=== PATIENT | female | born 1970 | race Caucasian/White ===

== ENCOUNTER 2017-02-18 04:59 | Emergency (ER) | payer MEDICARE, BC ==
[~2017-02-18] VITALS: Ht 162.6 cm; Wt 57.6 kg
[~2017-02-18 04:59] MED LIST: CLON-412 PO; LITH450T PO
[2017-02-18 05:05] VITALS: Ht 162.6 cm; Wt 57.6 kg
[2017-02-18 06:44] LABS: BASOPHIL # 0.1 10^3/ul (0.0-0.1); BASOPHILS % 0.5 % (0.0-2.0); EOSINOPHILS % 0.3 % (0.0-7.0); HEMATOCRIT 39.5 % (37.0-47.0); HEMOGLOBIN 13.4 g/dl (12.0-16.0); LYMPHOCYTES # 0.9 10^3/ul (0.8-2.9); LYMPHOCYTES % 9.3 % (15.0-51.0); MEAN CORPUSCULAR HEMOGLOBIN 30.9 pg (29.0-33.0); MEAN CORPUSCULAR HGB CONC 33.9 g/dl (32.0-37.0); MEAN PLATELET VOLUME 10.9 fl (7.4-10.4); MONOCYTE # 0.8 10^3/ul (0.3-0.9); MONOCYTES % 8.5 % (0.0-11.0); NEUTROPHIL # 7.8 10^3/ul (1.6-7.5); PLATELET COUNT 300 10^3/UL (140-415); RED BLOOD COUNT 4.34 10^6/ul (4.20-5.40); RED CELL DISTRIBUTION WIDTH 12.6 % (11.5-14.5); WHITE BLOOD COUNT 9.7 10^3/ul (4.8-10.8)
--- NOTE | 2017-02-18 07:15 | PSY ---
Date/Time of Note Date/Time of Note DATE: 02/18/17 TIME: 06:57 Psychiatric Subjective Eval Consent Pt consented to telemedicine: Yes Subjective Evaluation Patient location: emergency Chief Complaint: feels her heart racing = woke up from sleep- denies CP Reason for consult: heart palpitation and swetiness History of present illness patient is a 46 yo female with PPH Of bipolar do and anxiety do who came to the ER due to feeling suicidal and anxious, she states that she came because she was feeling sweaty with heart palpitation, but then added that she has been feeling suicidal and she wants to OD on pills, she has been feeling depressed, hopeless and helpless for weeks, has bee hearing voices telling her to kill herself , feeling paranoid , she was admitted to psych unit last week end , she denies any drug but has been drinking alcohol. she has been having panic attacks. Past psychiatric history past suicidal attempt yes Allergies: Coded Allergies: Sulfa (Sulfonamide Antibiotics) (Verified Allergy, Unknown, 02/18/17) Substance Abuse Substance use: No known substance abuse Social History Marital status: single Level of education: hs DPA/Conservatorship: No Occupation/[facility]: no Psychiatric Objective Eval Review of Systems: Review of Systems: Not Applicable Physical Examination: Physical Examination: Applicable Sleep: Insomnia Appetite: Decreased Energy: Decreased Interest: Decreased Mental Status Examination: Appearance: Groomed Eye Contact: Good Psychomotor Activity: Slow Behavior: Cooperative Speech: Clear AFFECT: Flat Mood: Depressed Though Process: Linear Thought Content: Hallucinations Suicidal: Yes Homicidal: No On 72 hour hold: No Orientation: x3 Cognition: Alert Insight: Impared Judgement: Impared Attention Span: Distractible Laboratory Results Laboratory Tests Test 02/18/17 06:00 White Blood Count 9.710^3/ul Red Blood Count 4.3410^6/ul Hemoglobin 13.4g/dl Hematocrit 39.5% Mean Corpuscular Volume 91.0fl Mean Corpuscular Hemoglobin 30.9pg Mean Corpuscular Hemoglobin Concent 33.9g/dl Red Cell Distribution Width 12.6% Platelet Count 77079^3/UL Mean Platelet Volume 10.9fl Neutrophils % 81.0% Lymphocytes % 9.3% Monocytes % 8.5% Eosinophils % 0.3% Basophils % 0.5% Nucleated Red Blood Cells % 0.0/100WBC Neutrophils # 7.810^3/ul Lymphocytes # 0.910^3/ul Monocytes # 0.810^3/ul Eosinophils # 0.010^3/ul Basophils # 0.110^3/ul Nucleated Red Blood Cells # 0.010^3/ul Assessment and Plan Assessment/Diagnosis [place] I: bipolar do type 1 current episode depressed severe with psychotic features [place] II: deferred [place] III: as per record [place] IV: poor social support [place] V: gaf 25 Recommendation/Plan Medication Management risperdal 1 mg po bid for psychosis ativan 1 mg po bid for anxiety lexapro 10 mg po qd for depression and anxiety Follow-up/Disposition Please admit patient on unvoluntary status due to Danger to self, In my opinion, patient currently MEETS criterion for inpatient care and CANNOT be safely treated ~at a lower level of care today as evidenced by the following risk factors: ~Current and Recent Suicidal Ideation Previous suicide attempt and~ severe self-destructive behavior Intense feelings of hopelessness and lack of future orientation. Significant recent DETERIORATION in function, behavior and thought processes ~Command hallucinations with violent content Substance ABUSE in conjunction with another psychiatric disorder Non-Compliance with Outpatient Treatment Patient has failed outpatient and requires further inpatient assessment Medication changes require observation unavailable at a lower level of care. 5150 Recommendation: SUZANNA Bach MD Feb 18, 2017 07:08
[2017-02-18 07:21] LABS: ALANINE AMINOTRANSFERASE 23 IU/L (13-69); ALBUMIN 4.4 g/dl (3.3-4.9); ALBUMIN/GLOBULIN RATIO 1.51; ALKALINE PHOSPHATASE 80 IU/L (42-121); ANION GAP 18 (8-16); ASPARTATE AMINO TRANSFERASE 17 IU/L (15-46); BILIRUBIN,INDIRECT 0.5 mg/dl (0-1.1); BILIRUBIN,TOTAL 0.5 mg/dl (0.2-1.3); BLOOD UREA NITROGEN 8 mg/dl (7-20); CALCIUM 9.3 mg/dl (8.4-10.2); CARBON DIOXIDE 27 mmol/L (21-31); CHLORIDE 102 mmol/L (97-110); GLUCOSE 101 mg/dl (70-220); POTASSIUM 3.5 mmol/L (3.5-5.1); SODIUM 143 mmol/L (135-144); TOTAL PROTEIN 7.3 g/dl (6.1-8.1)
[2017-02-18 07:25] LABS: ACETAMINOPHEN < 10.0 ug/ml (10.0-30.0); ETHANOL < 10.0 mg/dl; SALICYLATE < 1.0 mg/dl (5.0-30.0)
--- NOTE | 2017-02-18 07:33 | RADRPT ---
PROCEDURE: XR Chest. TECHNIQUE: Single frontal radiograph. CLINICAL INDICATION: Shortness of breath. COMPARISON: 02/25/2013. FINDINGS: No focal consolidation, pneumothorax, or pleural effusions. Heart size is within normal limits. IMPRESSION: No acute cardiopulmonary process. RPTAT: EE .Charli Waggoner MD, Date Time Electronically viewed and signed by .Charli Waggoner MD, MD on 02/18/2017 07:39 .C/
--- NOTE | 2017-02-18 08:58 | ERD ---
ER Documentation Chief Complaint Chief Complaint feels her heart racing = woke up from sleep- denies CP HPI Patient is a 46-year-old female with bipolar disorder and posttraumatic stress who presents with palpitations. She said that she has had palpitations for the past few days. She had shortness of breath and some sharp chest pain as well. She does have a history of bipolar disorder and posttraumatic stress and was just discharged from a psychiatric hospital 2 days ago. Upon questioning she does admit to suicidal ideation and has a plan to overdose on pills. She does not have any homicidal ideation at this time. She was brought into the emergency department by a friend who was concerned. ROS All systems reviewed and are negative except as per history of present illness. Medications Home Meds Reported Medications Clonazepam* (Klonopin*) 1 Mg Tablet, 1 MG PO BID 02/23/13 Clarkson Carbonate* (Clarkson Carbonate* CR) 450 Mg Tablet.sa, 450 MG PO DAILY 02/23/13 Allergies Allergies: Coded Allergies: Sulfa (Sulfonamide Antibiotics) (Verified Allergy, Unknown, 02/18/17) PMhx/Soc History of Surgery: Yes (dental sx only per pt, molars were extracted) Anesthesia Reaction: No Hx Neurological Disorder: No Hx Respiratory Disorders: No Hx Cardiac Disorders: No Hx Psychiatric Problems: Yes (bipolar and PTSD) Hx Miscellaneous Medical Probl: Yes (depression only per pt) Hx Alcohol Use: Yes (somethimes) Hx Substance Use: No Hx Tobacco Use: No Smoking Status: Never smoker FmHx Family History: No diabetes Physical Exam Vitals Vital Signs Date Time Temp Pulse Resp B/P Pulse Ox O2 Delivery O2 Flow Rate FiO2 02/18/17 06:13 98.1 84 18 143/89 100 Room Air 02/18/17 05:05 98.1 103 20 162/81 97 Physical Exam Const: No acute distress Head: Atraumatic Eyes: Normal Conjunctiva ENT: Normal External Ears, Nose and Mouth. Neck: Full range of motion..~ No meningismus. Resp: Clear to auscultation bilaterally Cardio: Regular rate and rhythm, no murmurs Abd: Soft, non tender, non distended. Normal bowel sounds Skin: No petechiae or rashes Back: No midline or flank tenderness Ext: No cyanosis, or edema Neur: Awake and alert Psych: Positive for suicidal ideation with plan to overdose on pills, negative for homicidal ideation Result Diagram: 02/18/17 0600 02/18/17 0600 Results 24 hrs Laboratory Tests Test 02/18/17 06:00 White Blood Count 9.710^3/ul Red Blood Count 4.3410^6/ul Hemoglobin 13.4g/dl Hematocrit 39.5% Mean Corpuscular Volume 91.0fl Mean Corpuscular Hemoglobin 30.9pg Mean Corpuscular Hemoglobin Concent 33.9g/dl Red Cell Distribution Width 12.6% Platelet Count 76601^3/UL Mean Platelet Volume 10.9fl Neutrophils % 81.0% Lymphocytes % 9.3% Monocytes % 8.5% Eosinophils % 0.3% Basophils % 0.5% Nucleated Red Blood Cells % 0.0/100WBC Neutrophils # 7.810^3/ul Lymphocytes # 0.910^3/ul Monocytes # 0.810^3/ul Eosinophils # 0.010^3/ul Basophils # 0.110^3/ul Nucleated Red Blood Cells # 0.010^3/ul Sodium Level 143mmol/L Potassium Level 3.5mmol/L Chloride Level 102mmol/L Carbon Dioxide Level 27mmol/L Anion Gap 18 Blood Urea Nitrogen 8mg/dl Creatinine 0.60mg/dl Glucose Level 101mg/dl Calcium Level 9.3mg/dl Total Bilirubin 0.5mg/dl Direct Bilirubin 0.00mg/dl Indirect Bilirubin 0.5mg/dl Aspartate Amino Transf (AST/SGOT) 17IU/L Alanine Aminotransferase (ALT/SGPT) 23IU/L Alkaline Phosphatase 80IU/L Total Protein 7.3g/dl Albumin 4.4g/dl Globulin 2.90g/dl Albumin/Globulin Ratio 1.51 Salicylates Level < 1.0mg/dl Acetaminophen Level < 10.0ug/ml Ethyl Alcohol Level < 10.0mg/dl Current Medications Medications (Trade) Dose Ordered Sig/Martin Route PRN Reason Start Time Stop Time Status Last Admin Dose Admin Escitalopram Oxalate (Lexapro) 10 mg DAILY PO 02/18/17 09:00 Risperidone (Risperdal) 1 mg BID PO 02/18/17 09:00 Lorazepam (Ativan) 1 mg BID PO 02/18/17 09:00 Procedures/MDM EKG read by me: Rate/Rhythm: Regular rate and rhythm at a rate of 98 Intervals: Normal Impression: No evidence of ischemia or arrhythmia Chest x-ray negative per radiology. Patient is a 46-year-old female with posttraumatic stress and bipolar disorder who presents with suicidal ideation with plan to overdose. She had a medical screening exam with laboratory studies which was negative and the patient is now medically clear for psychiatric admission. The patient was seen by psychiatry who recommended a 5150 hold as well as medications which I have ordered. The patient will need transfer to a psychiatric facility for higher level of care as we do not currently have a psychiatric facility here at the hospital. Departure Diagnosis: Primary Impression: Suicidal ideation Additional Impression: Palpitations Condition: SAMM Fraire MD Feb 18, 2017 08:58
[2017-02-18] MEDS ORDERED: RISPERIDONE 1 MG TAB PO SCH (09:00)
[2017-02-18] MEDS ORDERED: ESCITALOPRAM 10 MG TAB PO SCH (09:00)
[2017-02-18] MEDS ORDERED: LORAZEPAM 1 MG TAB PO SCH (09:00)
[2017-02-18] MEDS ORDERED: ESCI5TAB PO (09:22)
[2017-02-18] MEDS ORDERED: LORA-441 PO (09:23)
[2017-02-18 11:45] LABS: ADD UMIC NO; UR ASCORBIC ACID 40 mg/dL (NEGATIVE); UR BACTERIA FEW /HPF (NONE SEEN); UR BILIRUBIN (Dip) NEGATIVE (NEGATIVE); UR BLOOD (Dip) NEGATIVE (NEGATIVE); UR CLARITY SLIGHTLY CLOUDY (CLEAR); UR COLOR YELLOW (YELLOW); UR GLUCOSE (Dip) NEGATIVE (NEGATIVE); UR KETONES (Dip) 2+ mg/dL (NEGATIVE); UR LEUKOCYTE ESTERASE (Dip) NEGATIVE Leu/ul (NEGATIVE); UR MUCUS MANY /HPF (NONE SEEN); UR NITRITE (Dip) NEGATIVE (NEGATIVE); UR RBC 6 /HPF (0-5); UR SPECIFIC GRAVITY (Dip) 1.015 (1.003-1.030); UR SQUAMOUS EPITHELIAL CELL FEW /HPF (FEW); UR TOTAL PROTEIN (Dip) NEGATIVE (NEGATIVE); UR UROBILINOGEN (Dip) NEGATIVE (NEGATIVE)
[2017-02-18 12:06] LABS: BARBITURATES Negative (NEGATIVE); BENZODIAZEPINES Negative (NEGATIVE); CANNABINOIDS Negative (NEGATIVE); COCAINE Negative (NEGATIVE); OPIATES Negative (NEGATIVE)
[2017-02-18 15:45] VITALS: BP 129/79; PULSE 98; RESP 17; TEMP 99.4
== END 2017-02-18 16:27 ==
LOC: E/R 04:59
DX: R45.851 Suicidal ideations (principal); R40.2252 Coma scale, best verbal response, oriented, at arrival to emergency department; R40.2142 Coma scale, eyes open, spontaneous, at arrival to emergency department; R40.2362 Coma scale, best motor response, obeys commands, at arrival to emergency department
CPT/HCPCS: 36415; 71010; 80053; 80306; 80307; 81001; 81003; 85025; 93005